=== PATIENT | male | born 1945 ===

== ENCOUNTER → 2019-02-05 21:31 | Outpatient (CLI) | payer MEDICARE, OTHER ==
[2019-02-05 21:46] LABS: BASOPHILS 0.9 % (0-2); EOSINOPHILS 6.5 % (0-7); HEMATOCRIT 35.9 % (42.0-54.0); HEMOGLOBIN 11.7 g/dL (13.5-17.5); LYMPHOCYTES 47.9 % (15-50); MCH 33.6 pg (26.0-34.0); MCHC 32.6 g/dL (31.0-37.0); MCV 103.2 fL (80.0-100.0); MEAN PLATELET VOLUME 11.4 fL (7.4-10.4); MONOCYTES 14.4 % (2-11); NEUTROPHILS 30.3 % (40-80); PLATELET COUNT 167 10x3/uL (130-400); RBC 3.48 10x6/uL (4.20-6.10); RDW 14.6 % (11.5-14.5); WBC 4.3 10x3/uL (4.8-10.8)
[2019-02-05 21:59] LABS: CREATININE - SERUM 0.9 mg/dL (0.6-1.3); VANCOMYCIN - TROUGH 13.1 ug/mL (10.0-20.0)
== END | disposition home or self-care (01) ==
LOC: D.LABREF 21:31
DX: G06.1 Intraspinal abscess and granuloma (principal); K68.12 Psoas muscle abscess; Z79.2 Long term (current) use of antibiotics

== ENCOUNTER → 2019-02-12 11:59 | Outpatient (CLI) | payer MEDICARE ==
[2019-02-12 13:17] LABS: CREATININE - SERUM 0.9 mg/dL (0.6-1.3); VANCOMYCIN - TROUGH 14.3 ug/mL (10.0-20.0)
[2019-02-12 13:30] LABS: HEMATOCRIT 34.4 % (42.0-54.0); HEMOGLOBIN 11.4 g/dL (13.5-17.5); MCH 33.9 pg (26.0-34.0); MCHC 33.1 g/dL (31.0-37.0); MCV 102.4 fL (80.0-100.0); MEAN PLATELET VOLUME 11.6 fL (7.4-10.4); PLATELET COUNT 170 10x3/uL (130-400); RBC 3.36 10x6/uL (4.20-6.10); RDW 14.7 % (11.5-14.5); WBC 5.3 10x3/uL (4.8-10.8)
[2019-02-12 15:53] LABS: EOSINOPHILS 13 % (0-7); LYMPHOCYTES 48 % (15-50); MONOCYTES 3 % (2-11); NEUTROPHILS 38 % (40-80); PLATELET ESTIMATE NORMAL
== END | disposition home or self-care (01) ==
LOC: D.LABREF 11:59
PROVIDERS: ATTEND Student in an Organized Health Care Education/Training Program
DX: K68.12 Psoas muscle abscess (principal); Z79.2 Long term (current) use of antibiotics

== ENCOUNTER → 2019-02-23 10:25 | Outpatient (CLI) | payer OTHER ==
[2019-02-23 10:46] LABS: CREATININE - SERUM 1.9 mg/dL (0.6-1.3); VANCOMYCIN - TROUGH 29.4 ug/mL (10.0-20.0)
== END | disposition home or self-care (01) ==
LOC: D.LABREF 10:25
PROVIDERS: ATTEND Student in an Organized Health Care Education/Training Program
DX: G06.1 Intraspinal abscess and granuloma (principal); K68.12 Psoas muscle abscess; M86.9 Osteomyelitis, unspecified

== ENCOUNTER → 2019-02-26 12:09 | Outpatient (CLI) | payer OTHER ==
[2019-02-26 12:30] LABS: CREATININE - SERUM 1.9 mg/dL (0.6-1.3); VANCOMYCIN - TROUGH 10.9 ug/mL (10.0-20.0)
== END | disposition home or self-care (01) ==
LOC: D.LABREF 12:09
PROVIDERS: ATTEND Student in an Organized Health Care Education/Training Program
DX: K68.12 Psoas muscle abscess (principal); C06.1 Malignant neoplasm of vestibule of mouth; M86.9 Osteomyelitis, unspecified

== ENCOUNTER → 2019-03-02 11:16 | Outpatient (CLI) | payer OTHER ==
[2019-03-02 12:06] LABS: BASOPHILS 0.6 % (0-2); EOSINOPHILS 3.4 % (0-7); HEMATOCRIT 33.2 % (42.0-54.0); HEMOGLOBIN 11.1 g/dL (13.5-17.5); LYMPHOCYTES 39.3 % (15-50); MCH 33.7 pg (26.0-34.0); MCHC 33.4 g/dL (31.0-37.0); MCV 100.9 fL (80.0-100.0); MEAN PLATELET VOLUME 11.8 fL (7.4-10.4); MONOCYTES 13.6 % (2-11); NEUTROPHILS 43.1 % (40-80); PLATELET COUNT 203 10x3/uL (130-400); RBC 3.29 10x6/uL (4.20-6.10); RDW 14.9 % (11.5-14.5); WBC 5.2 10x3/uL (4.8-10.8)
[2019-03-02 12:15] LABS: VANCOMYCIN - TROUGH 21.5 ug/mL (10.0-20.0)
== END | disposition home or self-care (01) ==
LOC: D.LABREF 11:16
PROVIDERS: ATTEND Student in an Organized Health Care Education/Training Program
DX: Z79.2 Long term (current) use of antibiotics (principal); K68.12 Psoas muscle abscess

== ENCOUNTER → 2019-03-05 12:15 | Outpatient (CLI) | payer OTHER ==
[2019-03-05 12:42] LABS: CREATININE - SERUM 1.9 mg/dL (0.6-1.3); VANCOMYCIN - TROUGH 13.2 ug/mL (10.0-20.0)
== END | disposition home or self-care (01) ==
LOC: D.LABREF 12:15
PROVIDERS: ATTEND Student in an Organized Health Care Education/Training Program
DX: K68.12 Psoas muscle abscess (principal); M86.4 Chronic osteomyelitis with draining sinus; E11.40 Type 2 diabetes mellitus with diabetic neuropathy, unspecified; G20 Parkinson's disease